=== PATIENT | male | born 1960 | race Caucasian/White ===

== ENCOUNTER 2020-10-18 14:38 | Observation (INO) | payer OTHER ==
[~2020-10-18] VITALS: Ht 172.7 cm; Wt 64.3 kg
[2020-10-18] MEDS ORDERED: BUPR15TASR PO (14:58)
[2020-10-18] MEDS ORDERED: LISI30TA4 PO (14:58)
[2020-10-18] MEDS ORDERED: ATOR80TA59 PO (14:58)
[2020-10-18] MEDS ORDERED: BRIL1TAB PO (14:58)
[2020-10-18] MEDS ORDERED: MONT10TA10 PO (14:58)
[2020-10-18] MEDS ORDERED: SILD100T PO (14:58)
[2020-10-18] MEDS ORDERED: ASPI81CH33 PO (14:58)
[2020-10-18] MEDS ORDERED: CARV6.25 PO (14:58)
[2020-10-18 15:13] LABS: BASO # 0.1 10^3/uL (0.0-0.2); BASO % 0.7 % (0.0-1.0); EOS # 0.1 10^3/uL (0.0-0.5); HEMATOCRIT 35.1 % (42.0-52.0); HEMOGLOBIN 11.6 g/dl (13.5-17.5); LYMPH # 2.2 10^3/uL (1.5-5.0); LYMPH % 21.8 % (24.0-44.0); MEAN CORPUSCULAR HEMOGLOBIN 30.4 pg (27.0-33.0); MEAN CORPUSCULAR VOLUME 92.1 fl (80.0-96.0); MONO # 1.1 10^3/uL (0.0-0.8); MONO % 11.2 % (2.0-8.0); NEUTROPHILS # 6.5 10^3/uL (1.5-8.5); NEUTROPHILS % 64.4 % (36.0-66.0); PLATELET COUNT, AUTOMATED 339 10^3/uL (150-450); RED BLOOD COUNT 3.81 10^6/uL (4.30-6.10); WHITE BLOOD COUNT 10.1 10^3/uL (4.0-10.0)
[2020-10-18 15:33] LABS: BLOOD UREA NITROGEN 11 MG/DL (7-18); CALCIUM LEVEL 8.3 MG/DL (8.5-10.1); CARBON DIOXIDE LEVEL 25 MEQ/L (21-32); CHLORIDE LEVEL 98 MEQ/L (98-107); CK-MB VALUE MASS < 1.0 NG/ML (<3.6); CPK CREATINE PHOSPHOKINASE 29 U/L (39-308); CREATININE FOR GFR 0.92 MG/DL (0.70-1.30); GLOMERULAR FILTRATION RATE > 60.0 (>56); GLUCOSE, FASTING 123 MG/DL (70-100); MB/CK RELATIVE INDEX 3.45 (< OR =4); POTASSIUM SERUM 4.3 MEQ/L (3.5-5.1); SODIUM LEVEL 130 MEQ/L (136-145); TROPONIN I < 0.02 NG/ML (< 0.10)
--- NOTE | 2020-10-18 16:59 | REP ---
INDICATION: syncope. COMPARISON: None TECHNIQUE: Upright PA and lateral chest. FINDINGS: The lung hanna are clear. Cardiac size is normal. The edwin, mediastinum and skeletal structures are unremarkable. IMPRESSION: Essentially negative PA and lateral chest <Electronically signed by Artis Casper > 10/18/20 [id number]
[2020-10-18] MEDS: NS 1,000 ML IV SCH ×2 (17:11→22:29)
[2020-10-18] MEDS ORDERED: D31000TA2 PO (17:27)
[2020-10-18] MEDS ORDERED: HOME MED LIST COMPLETE! XX SCH (17:30)
[2020-10-18 17:54] LABS: RSV AMPLIFICATION NEGATIVE (NEGATIVE)
--- NOTE | 2020-10-18 17:59 | HPEPDOC ---
[facility] Medical History & Physical Date of Admission Oct 18, 2020 Date of Service: Oct 18, 2020 History and Physical CHIEF COMPLAINT: I passed out HISTORY OF PRESENT ILLNESS: 52-year-old male with a past medical history of coronary artery disease, myocardial infarction (status post stents placed 2 years ago), hypertension, depression, and dyslipidemia was brought to the emergency department after a syncopal episode. He was at his friend's house in the group and while bending over to pick up attendant a crowbar in the garage he felt dizzy and according to his friend, as patient does not recall, he "passed out". The only thing prior to this episode was him feeling dizzy. He denied diaphoresis, nausea, vomiting, palpitations, and feeling short of breath. He was not told that there was shaking/jerking episodes witnessed. He did not lose control of his bowel or bladder. The next thing he remembers is waking up and being asked to sit up in a chair by his friend who called EMS. He endorses only being outside for approx imately 10 minutes. To his understanding, he has been eating and drinking well. While with his friend he was drinking but only consumed half a can of beer. This did not happen to him in the past. In the emergency department, EMS reported patient was hypotensive and were unable to obtain a blood pressure. He is now being admitted for further evaluation of his syncope. PAST MEDICAL HISTORY: As mentioned above PAST SURGICAL HISTORY: 1. Cardiac cath -stent placed SOCIAL HISTORY: He lives with his , mother, and 2 dogs at home. He is independent with ADLs/IADLs. He smokes half a pack a day, endorses drinking occasionally, denies recreational drug use FAMILY HISTORY: He believes father had coronary artery disease. ALLERGIES: Please see below. REVIEW OF SYSTEMS: 10 point review of system was negative except for what is noted in the HPI HOME MEDICATIONS: Please see below. PHYSICAL EXAMINATION: General: Lying in bed, no acute distress Head/Neck/Throat: Trachea midline, mucous membranes moist Eyes: Sclera anicteric, PERRLA Thorax: Normal respiratory effort on room air, lungs clear to auscultation bilaterally, no wheezes/rales/rhonchi Cardiovascular: Normal rate, regular rhythm, normal S1, S2; no S3, S4, rubs/gallops/murmurs Abdomen: Bowel sounds present, soft/nontender/nondistended Genitourinary: No CVA tenderness, no Sarmiento in place Musculoskeletal: Moving all extremities, no edema Skin: Warm, dry Neurologic: AAOx3. Cranial nerves II to XII intact. Strength in upper and lower extremities is 5/5. Sensation to gross touch and pinprick intact. Cerebellar examination including mkmkhq-sq-enaz, ljnt-yl-jfpw negative. Dysdiadochokinesia negative. Romberg's sign negative. LABORATORY DATA: See below. IMAGING: Please see imaging section MICROBIOLOGY: Please see below. ASSESSMENT/PLAN: #Syncope -Possibly hypotension and vasovagal episode. -With cardiac hx will monitor on telemetry to rule out arrhythmia. Obtain echocardiogram to evaluate valvular and ventricular function. Check orthostatic signs. -EKG shows not acute ST/T wave changes. Troponin negative thus far. -Obtain CT scan of the head, unaware if patient hit his head although there is no overt trauma appreciated on clinical exam. #CAD -Status post stents. Continue with dual antiplatelet therapy and statin. Will hold beta-blockers due to blood pressure being on the lower end. #HTN -Hold lisinopril for now due to blood pressure. #Anemia -Obtain retic count, iron panel, obtain occult blood. #Hyponatremia -Obtain serum and urine osmolarity. Pt already received IV fluids which may skew results. #Depression -Continue with bupropion. #DVT ppx -heparin subq Vital Signs Vital Signs Date Time Temp Pulse Resp B/P (MAP) Pulse Ox O2 Delivery O2 Flow Rate FiO2 10/18/20 16:30 73 18 130/69 (89) 10/18/20 16:15 96 Room Air 10/18/20 14:50 97.8 Laboratory Data Labs 24H Laboratory Tests 2 10/18/20 14:50: Immature Granulocyte % (Auto) 0.9, Neutrophils (%) (Auto) 64.4, Lymphocytes (%) (Auto) 21.8L, Monocytes (%) (Auto) 11.2H, Eosinophils (%) (Auto) 1.0, Basophils (%) (Auto) 0.7, Neutrophils # (Auto) 6.5, Lymphocytes # (Auto) 2.2, Monocytes # (Auto) 1.1H, Eosinophils # (Auto) 0.1, Basophils # (Auto) 0.1, Nucleated Red Blood Cells % (auto) 0.0, Anion Gap 7L, Glomerular Filtration Rate > 60.0, Calcium Level 8.3L, Total Creatine Kinase 29L, Creatine Kinase MB < 1.0, Creatine Kinase MB Relative Index 3.45, Troponin I < 0.02, Thyroid Stimulating Hormone (TSH) 1.960 10/18/20 14:53: Bedside Glucose (Misc Panel) 120H 10/18/20 17:07: CBC/BMP Laboratory Tests 10/18/20 14:50 Home Medications Scheduled Aspirin (Aspirin) 81 Mg Tab.chew, 81 MG PO DAILY Atorvastatin Calcium (Atorvastatin Calcium) 80 Mg Tablet, 80 MG PO QHS Bupropion HCl (Bupropion HCl Sr) 150 Mg Tab.er.12h, 150 MG PO BID Carvedilol (Carvedilol) 6.25 Mg Tablet, 6.25 MG PO BID Cholecalciferol (Vitamin D3) (Vitamin D3) 1,000 Unit Tablet, 5,000 UNITS PO QHS Lisinopril (Lisinopril) 30 Mg Tablet, 30 MG PO DAILY Montelukast Sodium (Montelukast Sodium) 10 Mg Tablet, 10 MG PO QHS Ticagrelor (Brilinta) 60 Mg Tablet, 60 MG PO BID Scheduled PRN Sildenafil Citrate (Sildenafil Citrate) 100 Mg Tablet, 100 MG PO ASDIRECTED PRN for ERECTILE DYSFUNCTION Allergies Coded Allergies: No Known Allergies (Unverified , 10/18/20) A-FIB/CHADSVASC A-FIB History Current/History of A-Fib/PAF?: No BASILIO GÓMEZ M.D. Oct 18, 2020 17:48
[2020-10-18 18:57] LABS: OSMOLALITY SERUM 264 MOSM/KG (275-295)
[2020-10-18 19:01] LABS: FREE T4 0.97 NG/DL (0.76-1.46)
[2020-10-18 21:21] VITALS: BP 162/80
[2020-10-18] MEDS: ATORVASTATIN 20 MG TAB PO SCH (21:42)
[2020-10-18] MEDS: HEPARIN SOD (PORCINE) 5000UNITS/ML 1ML VIAL/SYRINGE SQ SCH (21:42)
[2020-10-18] MEDS: MONTELUKAST 10 MG TAB PO SCH (21:42)
[2020-10-18 22:00] VITALS: BP_SYST 158; BP_SYST 161; BP_SYST 169; BP_DIAS 82; BP_DIAS 89; BP_DIAS 90
[2020-10-18] MEDS: buPROPion **SR TABLET** (ZYBAN) 150MG PO SCH (22:12)
[2020-10-19] MEDS: HEPARIN SOD (PORCINE) 5000UNITS/ML 1ML VIAL/SYRINGE SQ SCH ×3 (05:23→20:14)
[2020-10-19] MEDS: NS 1,000 ML IV SCH (05:23)
[2020-10-19 06:00] VITALS: BP_SYST 141; BP_SYST 154; BP_SYST 165; BP_DIAS 80; BP_DIAS 82; BP_DIAS 87
[2020-10-19 07:47] LABS: HEMATOCRIT 33.3 % (42.0-52.0); MEAN CORPUSCULAR HEMOGLOBIN 30.6 pg (27.0-33.0); MEAN CORPUSCULAR VOLUME 92.5 fl (80.0-96.0); PLATELET COUNT, AUTOMATED 323 10^3/uL (150-450); WHITE BLOOD COUNT 7.9 10^3/uL (4.0-10.0)
[2020-10-19 08:29] LABS: BLOOD UREA NITROGEN 7 MG/DL (7-18); CALCIUM LEVEL 8.9 MG/DL (8.5-10.1); CARBON DIOXIDE LEVEL 24 MEQ/L (21-32); CHLORIDE LEVEL 103 MEQ/L (98-107); CREATININE FOR GFR 0.84 MG/DL (0.70-1.30); GLOMERULAR FILTRATION RATE > 60.0 (>56); GLUCOSE, FASTING 80 MG/DL (70-100); MAGNESIUM LEVEL 2.3 MG/DL (1.8-2.4); PHOSPHORUS LEVEL 3.4 MG/DL (2.5-4.9); SODIUM LEVEL 133 MEQ/L (136-145)
[2020-10-19] MEDS: buPROPion **SR TABLET** (ZYBAN) 150MG PO SCH ×2 (09:52→20:13)
[2020-10-19] MEDS: ASPIRIN 81 MG CHEW TABLET PO SCH (09:52)
[2020-10-19] MEDS: TICAGRELOR 90 MG TABLET (BRILINTA) PO SCH (09:53)
[2020-10-19 09:55] VITALS: BP 156/94
[2020-10-19 09:59] VITALS: BP 157/94
[2020-10-19 10:00] VITALS: BP 157/90
--- NOTE | 2020-10-19 10:19 | REPVR ---
PROCEDURE INFORMATION: Exam: MR Head Without Contrast Exam date and time: 10/19/2020 9:21 AM Age: 60 years old Clinical indication: Syncope and collapse TECHNIQUE: Imaging protocol: MR of the head without contrast. COMPARISON: No relevant prior studies available. FINDINGS: Brain: There is mild patchy increased T2 signal intensity within the bilateral cerebral periventricular white matter, consistent with chronic microvascular ischemic changes. There are few small focal areas of chronic ischemia in bilateral frontal, parietal and periatrial white matter. There is no abnormal diffusion weighted signal intensity to suggest an acute ischemic event. There is mild diffuse cerebral atrophy present, consistent with this patient's age. Cerebral ventricles: The ventricular system demonstrates mild diffuse compensatory enlargement. Bones/joints: Unremarkable. Paranasal sinuses: Mild mucosal thickening is seen in the paranasal sinuses. Mastoid air cells: Normal as visualized. No mastoid effusion. Orbital cavity: Unremarkable. Soft tissues: Unremarkable. IMPRESSION: 1. No acute infarction, masses or hemorrhage is seen. No acute intracranial abnormality is identified. 2. Diffuse age-related cerebral atrophy and mild chronic microvascular white matter ischemic changes, without evidence of an acute intracranial abnormality. Electronically signed by: Mikhail Jacobo On 10/19/2020 10:18:43 AM
--- NOTE | 2020-10-19 12:07 | IPNPDOC ---
Subjective Date Seen The patient was seen on 10/19/20. Subjective Chief Complaint/HPI Patient seen and examined at bedside this morning. He had no new complaints. He reports getting out of bed to use the restroom without difficulty. Other systems 10 point review of system was negative except for what is noted in the HPI Objective Physical Examination Other physical findings General: Lying in bed, no acute distress Head/Neck/Throat: Trachea midline, mucous membranes moist Eyes: Sclera anicteric, PERRLA Thorax: Normal respiratory effort on room air, lungs clear to auscultation bilaterally, no wheezes/rales/rhonchi Cardiovascular: Normal rate, regular rhythm, normal S1, S2; no S3, S4, rubs/gallops/murmurs Abdomen: Bowel sounds present, soft/nontender/nondistended Genitourinary: No CVA tenderness, no Sarmiento in place Musculoskeletal: Moving all extremities, no edema Skin: Warm, dry Neurologic: AAOx3, speech fluent and goal-directed, no focal deficits, grossly intact Assessment /Plan Assessment #Syncope -Possibly hypotension and vasovagal episode. -No arrhythmia noted over night on telemetry. Echocardiogram pending to assess valvular and ventricular function. Recheck orthostatic signs -EKG shows not acute ST/T wave changes and troponin negative; there was a first- degree AV block. -MRI of the brain showed no acute findings #CAD -Status post stents. Continue with dual antiplatelet therapy and statin. Will hold ambulatory beta-blockers and discussed with cardiology if dosage needs to be reduced versus discontinued. #HTN -Orthostasis and blood pressure has improved. He is hypertensive now will reini tiate lisinopril. #Anemia -Obtain retic count, iron panel, obtain occult blood. Anemia is not significant enough to be causing his symptoms. This work-up can also be continued as outpatient. He should be undergoing screening colonoscopy which can be set up with his primary care physician. #Hyponatremia -Obtain serum and urine osmolarity. Pt already received IV fluids which may skew results. #Depression -Continue with bupropion. #DVT ppx -heparin subq Plan/VTE VTE Prophylaxis Ordered?: Yes VS, I&O, 24H, Fishbone Vital Signs/I&O Vital Signs Date Time Temp Pulse Resp B/P (MAP) Pulse Ox O2 Delivery O2 Flow Rate FiO2 10/19/20 06:00 80 165/82 (109) 77 154/87 (109) 80 141/80 (100) 10/18/20 21:21 97.9 18 97 Room Air I&O- Last 24 Hours up to 6 AM 10/19/20 06:00 Intake Total 1225 ml Output Total 400 ml Balance 825 ml Laboratory Data 24H LABS Laboratory Tests 2 10/18/20 14:50: Immature Granulocyte % (Auto) 0.9, Neutrophils (%) (Auto) 64.4, Lymphocytes (%) (Auto) 21.8L, Monocytes (%) (Auto) 11.2H, Eosinophils (%) (Auto) 1.0, Basophils (%) (Auto) 0.7, Neutrophils # (Auto) 6.5, Lymphocytes # (Auto) 2.2, Monocytes # (Auto) 1.1H, Eosinophils # (Auto) 0.1, Basophils # (Auto) 0.1, Nucleated Red Blood Cells % (auto) 0.0, Anion Gap 7L, Glomerular Filtration Rate > 60.0, Osm olality 264L, Calcium Level 8.3L, Total Creatine Kinase 29L, Creatine Kinase MB < 1.0, Creatine Kinase MB Relative Index 3.45, Troponin I < 0.02, Thyroid Stimulating Hormone (TSH) 1.960, Free Thyroxine 0.97 10/18/20 14:53: Bedside Glucose (Misc Panel) 120H 10/18/20 17:07: Coronavirus (COVID-19)(PCR) NEGATIVE, Influenza Type A (RT-PCR) NEGATIVE, Influenza Type B (RT-PCR) NEGATIVE, Respiratory Syncytial Virus (PCR) NEGATIVE CBC/BMP Laboratory Tests 10/18/20 14:50 BASILIO GÓMEZ M.D. Oct 19, 2020 06:18
[2020-10-19 12:46] LABS: FERRITIN 33 NG/ML (26-388); IRON (FE) 71 UG/DL (65-175); PERCENT SATURATION 22.8 % (19.7-50.0); TOTAL IRON BINDING CAPACITY 312 UG/DL (250-450)
--- NOTE | 2020-10-19 13:17 | ECGEPIP ---
[facility] Test Date: 2020-10-19 Pat Name: HYACINTH DISLA Department: Room: [place] [address] Gender: Male Rn Ambulatory: BRENDON : 1960 Requested By: BASILIO Zamarripa Order Number: [id number] Reading MD: Elsa Escamilla Measurements Intervals [place] Rate: 72 P: 65 WI: 232 QRS: 68 QRSD: 92 T: 34 QT: 384 QTc: 420 Interpretive Statements Sinus rhythm with 1st degree AV block DECREASED VOLTAGE LIMB LEADS C/W 10/18/20 Electronically Signed on 10-19-2020 13:16:48 EDT by Elsa Escamilla
[2020-10-19 14:00] VITALS: BP 149/91
--- NOTE | 2020-10-19 17:40 | ECHO ---
ECHOCARDIOGRAM DATE OF PROCEDURE: 10/19/2020 Age: 60 Gender: Male Height: 68 inches Weight: 145 pounds Body surface area: 1.79 m2 PATIENT LOCATION: Inpatient, [address] [place] [address], Room 4227. REFERRING PHYSICIAN: René Miramontes M.D. INDICATION: Syncope. MEASUREMENTS: 2D Measurements: RV - 3.3 cm LV - 4.8 cm Septum 1.1 cm Posterior wall 1.1 cm Aortic root 4.0 cm LA - 4.1 cm LVEF 75% Doppler Measurements: AV - 1.0 m/sec LVOT - 0.95 m/sec LVOT - 2.0 cm MV-E 85, A 68, EA ratio 1.2 Early mitral deceleration time 183 msec E prime medial 9.4 A prime medial 9 E prime lateral 9.5 PV - 0.85 m/sec Pulmonary artery acceleration time 123 msec PASP 26 mmHg IVC - 1.4 cm COMMENTS: Normal sinus rhythm without intraventricular conduction disturbance. M-mode and 2-dimensional echocardiography was performed with pulse, continuous wave, color flow and tissue Doppler studies. Normal left ventricular size, wall thickness and wall motion. Borderline left atrial enlargement, but normal Doppler assessment of left ventricular (LV) diastolic function and left atrial (LA) pressure. Normal right heart chamber sizes and motion and estimated pulmonary arterial pressure. Slightly small inferior vena cava (IVC) with complete collapse with inhalation consistent with somewhat low central venous pressure. Slightly dilated aortic root, but normal ascending aorta. Mild aortic valvular sclerosis without stenosis. No insufficiency. Normal appearing mitral valvular apparatus and function. Normal appearing tricuspid valve with trace insufficiency. No apparent intracardiac mass or pericardial effusion.
[2020-10-19] MEDS: MONTELUKAST 10 MG TAB PO SCH (20:13)
[2020-10-19] MEDS: ATORVASTATIN 20 MG TAB PO SCH (20:13)
--- NOTE | 2020-10-19 20:17 | ECGEPIP ---
[facility] - ED Test Date: 2020-10-18 Pat Name: HYACINTH DISLA Department: Room: - Gender: Male Laboratory Tester: LEYDI : 1960 Requested By: FRANDY Corrales Order Number: [id number] Reading MD: Chata You Measurements Intervals [place] Rate: 68 P: 71 NV: 242 QRS: 76 QRSD: 94 T: 59 QT: 408 QTc: 433 Interpretive Statements Sinus rhythm with 1st degree AV block No prior Electronically Signed on 10-19-2020 20:17:41 EDT by Chata You
[2020-10-19 20:40] LABS: OSMOLALITY URINE 304 MOSM/KG (50-1400)
[2020-10-19 20:54] LABS: SODIUM,RANDOM URINE 85 MEQ/L
[2020-10-19 22:00] VITALS: BP 149/93
[2020-10-20] MEDS: HEPARIN SOD (PORCINE) 5000UNITS/ML 1ML VIAL/SYRINGE SQ SCH (05:05)
--- NOTE | 2020-10-20 06:13 | DS.PDOC ---
Discharge Summary General Date of Admission Oct 18, 2020 at 17:48 Date of Discharge 10/20/20 Discharge Summary DISCHARGE DIAGNOSES: 1. Vasovagal syncope 2. Orthostatic hypotension 3. Anemia 4. Electrolyte abnormality -hyponatremia Mr. Thakkar, presented to the emergency department at [facility] on 10/18/2020 following an episode of syncope. He reported he was in his friends garage and while bending down to grab something off the floor he became dizzy and according to his friend passed out. In the ED he had an EKG done that showed a first-degree block, however, no other acute ST/T wave changes were appreciated. He was monitored on telemetry during hospitalization and no arrhythmias were noted. An echocardiogram showed no overt reasons for his syncope; however, there was evidence of somewhat low central venous pressure. An MRI of the brain was done and it showed no acute abnormality. His episode of syncope was likely a to vasovagal event and some element of hypotension (positive orthostatic sign on repeated measuring once); on 10/20 just prior to discharge she also admitted to taking sildenafil just prior to this episode of syncope. He was treated with IV fluids which helped improve his symptoms. He was asked to follow-up with the creative director as an outpatient for ongoing care of his underlying cardiac history. He was also educated about taking his blood pressure regularly while he was on antihypertensive medications as well as sildenafil. He is to follow- up with his primary care physician for ongoing management for his hypertension. He was also instructed to have further work-up done for his anemia. At the time of discharge his hemoglobin was 10.9. His hemoglobin and hematocrit stayed stable throughout hospitalization. He was also hyponatremic (on admission 130) which improved with IV fluids. He was asked to follow-up with his primary care physician for repeat blood work. At the time of discharge patient was asymptomatic. DC time: 25 minutes Vital Signs/I&Os Vital Signs Date Time Temp Pulse Resp B/P (MAP) Pulse Ox O2 Delivery O2 Flow Rate FiO2 10/19/20 22:00 97.5 94 18 149/93 (111) 98 Room Air I&O- Last 24 Hours up to 6 AM 10/20/20 06:00 Intake Total 1475 ml Output Total 450 ml Balance 1025 ml PHYSICAL EXAM General: Lying in bed, no acute distress Head/Neck/Throat: Trachea midline, mucous membranes moist Eyes: Sclera anicteric, PERRLA Thorax: Normal respiratory effort on room air, lungs clear to auscultation bilaterally, no wheezes/rales/rhonchi Cardiovascular: Normal rate, regular rhythm, normal S1, S2; no S3, S4, rubs/gallops/murmurs Abdomen: Bowel sounds present, soft/nontender/nondistended Genitourinary: No CVA tenderness, no Sarmiento in place Musculoskeletal: Moving all extremities, no edema Skin: Warm, dry Neurologic: AAOx3, speech fluent and goal-directed, no focal deficits, grossly intact Laboratory Data Labs 24H Laboratory Tests 2 10/19/20 06:38: Reticulocyte # (auto) 58.0, Nucleated Red Blood Cells % (auto) 0.0, Percent Reticulocyte Count 1.6H, Reticulocyte Hemoglobin Equivalent 36.7H, Anion Gap 6L, Glomerular Filtration Rate > 60.0, Calcium Level 8.9, Phosphorus Level 3.4, Magnesium Level 2.3, Iron Level 71, Total Iron Binding Capacity 312, Transferrin % Saturation 22.8, Ferritin 33 10/19/20 20:28: Urine Osmolality 304, Urine Random Sodium 85 CBC/BMP Laboratory Tests 10/19/20 06:38 Discharge Medications Scheduled Aspirin (Aspirin) 81 Mg Tab.chew, 81 MG PO DAILY, (Reported) Atorvastatin Calcium (Atorvastatin Calcium) 80 Mg Tablet, 80 MG PO QHS, (Reported) Bupropion HCl (Bupropion HCl Sr) 150 Mg Tab.er.12h, 150 MG PO BID, (Reported) Carvedilol (Carvedilol) 6.25 Mg Tablet, 6.25 MG PO BID, (Reported) Cholecalciferol (Vitamin D3) (Vitamin D3) 1,000 Unit Tablet, 5,000 UNITS PO QHS, (Reported) Lisinopril (Lisinopril) 30 Mg Tablet, 30 MG PO DAILY, (Reported) Montelukast Sodium (Montelukast Sodium) 10 Mg Tablet, 10 MG PO QHS, (Reported) Ticagrelor (Brilinta) 60 Mg Tablet, 60 MG PO BID, (Reported) Scheduled PRN Sildenafil Citrate (Sildenafil Citrate) 100 Mg Tablet, 100 MG PO ASDIRECTED PRN for ERECTILE DYSFUNCTION, (Reported) Allergies Coded Allergies: No Known Allergies (Unverified , 10/18/20) BASILIO GÓMEZ M.D. 9, 2021 06:13
[2020-10-20 06:22] LABS: HEMATOCRIT 32.8 % (42.0-52.0); HEMOGLOBIN 10.9 g/dl (13.5-17.5); MEAN CORPUSCULAR HEMOGLOBIN 30.7 pg (27.0-33.0); MEAN CORPUSCULAR HGB CONC 33.2 g/dl (32.0-36.5); MEAN CORPUSCULAR VOLUME 92.4 fl (80.0-96.0); PLATELET COUNT, AUTOMATED 310 10^3/uL (150-450); RED BLOOD COUNT 3.55 10^6/uL (4.30-6.10); WHITE BLOOD COUNT 8.2 10^3/uL (4.0-10.0)
[2020-10-20 06:56] LABS: BLOOD UREA NITROGEN 7 MG/DL (7-18); CALCIUM LEVEL 8.3 MG/DL (8.5-10.1); CARBON DIOXIDE LEVEL 24 MEQ/L (21-32); CHLORIDE LEVEL 104 MEQ/L (98-107); CREATININE FOR GFR 0.83 MG/DL (0.70-1.30); GLOMERULAR FILTRATION RATE > 60.0 (>56); GLUCOSE, FASTING 87 MG/DL (70-100); PHOSPHORUS LEVEL 3.1 MG/DL (2.5-4.9); POTASSIUM SERUM 3.9 MEQ/L (3.5-5.1); SODIUM LEVEL 134 MEQ/L (136-145)
[2020-10-20 06:58] LABS: MAGNESIUM LEVEL 2.2 MG/DL (1.8-2.4); TROPONIN I < 0.02 NG/ML (< 0.10)
[2020-10-20] MEDS: TICAGRELOR 90 MG TABLET (BRILINTA) PO SCH (09:29)
[2020-10-20] MEDS: ASPIRIN 81 MG CHEW TABLET PO SCH (09:29)
[2020-10-20 09:30] VITALS: BP 146/85
[2020-10-20] MEDS: buPROPion **SR TABLET** (ZYBAN) 150MG PO SCH (09:30)
== END 2020-10-20 11:02 | disposition home or self-care (01) ==
LOC: EDBD 14:38 → M ED 14:38 → M ED INP 17:48 → ENRESERV 18:32 → M MSPAV 21:35
PROVIDERS: ADMIT Internal Medicine; ATTEND Internal Medicine
DX: R55 Syncope and collapse (principal); I95.1 Orthostatic hypotension; D64.9 Anemia, unspecified; E87.1 Hypo-osmolality and hyponatremia; I10 Essential (primary) hypertension; E78.49 Other hyperlipidemia; I25.10 Atherosclerotic heart disease of native coronary artery without angina pectoris; Z98.61 Coronary angioplasty status; I25.2 Old myocardial infarction; Z79.82 Long term (current) use of aspirin; Z79.899 Other long term (current) drug therapy; F32.9 Major depressive disorder, single episode, unspecified; F17.218 Nicotine dependence, cigarettes, with other nicotine-induced disorders
CPT/HCPCS: 36415; 70551; 71046; 80048; 82550; 82553; 82728; 83550; 83735; 83930; 83935; 84100; 84300; 84439; 84443; 84484; 85025; 85027; 85046; 87631; 93005; 93041; 93306; 94760; 96360; 96361; 96372; 99285; J1644